=== PATIENT | female | born 1965 | race Caucasian/White ===

== ENCOUNTER 2022-06-10 14:13 | Outpatient (CLI) | payer BC | END 2022-06-10 14:14 | disposition home or self-care (01) | LOC: CSHULT 14:13 | PROVIDERS: ATTEND Internal Medicine Interventional Cardiology | DX: I25.10 Atherosclerotic heart disease of native coronary artery without angina pectoris (principal); I51.9 Heart disease, unspecified | CPT/HCPCS: 93306 ==

== ENCOUNTER 2022-08-18 10:36 | Outpatient (CLI) | payer BC | END 2022-08-18 10:37 | disposition home or self-care (01) | LOC: CSHCP 10:36 | PROVIDERS: ATTEND Internal Medicine Critical Care Medicine | DX: J44.9 Chronic obstructive pulmonary disease, unspecified (principal) | CPT/HCPCS: 94060; 94726; 94729; 94760 ==